=== PATIENT | female | born 1985 | race Caucasian/White ===

== ENCOUNTER 2017-01-10 04:38 | Emergency (ER) | payer SELFPAY ==
[2017-01-10 04:47] VITALS: TEMP 98
[2017-01-10] MEDS ORDERED: ALBUTEROL/IPRATROPIUM 1 VIAL SOL INH ONE (05:02)
[2017-01-10] MEDS ORDERED: ALBUTEROL/IPRATROPIUM 1 VIAL SOL ONE (05:03)
[2017-01-10] MEDS ORDERED: CODEINE/GUAIFENESIN 5 ML SOL PO ONE (05:38)
[2017-01-10] MEDS ORDERED: CODEINE/GUAIFENESIN 5 ML SOL ONE (05:56)
[2017-01-10 06:49] VITALS: PULSE 88; RESP 20; O2SAT 92
[2017-01-10 06:51] VITALS: BP 127/74
== END 2017-01-10 06:14 | disposition home or self-care (01) | DRG 392 ==
LOC: ED 04:38
DX: K21.9 Gastro-esophageal reflux disease without esophagitis (principal)
CPT/HCPCS: 71020; 99283; J7620